=== PATIENT | male | born 1950 | race Asian ===

== ENCOUNTER → 2024-05-13 14:57 | Outpatient (CLI) | payer OTHER, SELFPAY ==
--- NOTE | 2024-05-13 15:05 | DI.RAD.S_ITS ---
PROCEDURE: XR FOOT RT MIN 3V INDICATIONS: GOUT TECHNIQUE: 3 views of the foot were acquired. COMPARISON: None. FINDINGS: Bones: No fractures or dislocations. Punched-out lesions of all of the MTP joints. Osteoarthritic changes to the midfoot and forefoot. Incidental os peroneum. Calcaneal enthesophytes. Soft tissues: No tibiotalar joint effusion. Achilles tendon appears normal. Mild soft tissue swelling at the level of the MTP joints. IMPRESSION: Punched-out lesions of all of the MTP joints consistent with provided history of gout. Dictated by: Woody Ding M.D. on 05/14/2024 at 11:34 Approved by: Woody Ding M.D. on 05/14/2024 at 11:39
--- NOTE | 2024-05-13 15:05 | DI.RAD.S_ITS ---
PROCEDURE: XR FOOT LT MIN 3V INDICATIONS: GOUT TECHNIQUE: 3 views of the foot were acquired. COMPARISON: None. FINDINGS: Bones: No fractures or dislocations. Punched-out bony erosions along all of the MTP joints. Osteoarthritic changes to the midfoot and forefoot. Incidental os peroneum in. Soft tissues: No tibiotalar joint effusion. Achilles tendon appears normal. Mild soft tissue swelling throughout the foot. IMPRESSION: Punched-out erosions along all of the MTP joints consistent with provided history of gout. Dictated by: Woody Ding M.D. on 05/14/2024 at 11:26 Approved by: Woody Ding M.D. on 05/14/2024 at 11:34
== END ==
PROVIDERS: PCP Chiropractor; Referring Provider Podiatrist Foot & Ankle Surgery; Visit Provider Podiatrist Foot & Ankle Surgery
DX: M10.9 Gout, unspecified (principal)
CPT/HCPCS: 73630